=== PATIENT | male | born 1960 | race Caucasian/White ===

== ENCOUNTER 2025-08-21 12:07 | Day surgery (SDC) | payer OTHER ==
[~2025-08-21] VITALS: Ht 182.9 cm; Wt 75.4 kg
[2025-08-21] VITALS (18 sets, daily range): BP systolic 91–135; BP diastolic 56–115
--- NOTE | 2025-08-21 13:17 | NUR ---
Ambulatory in Day Surgery Pre-Op teaching done. Pt verbalizes understanding. Patient confirms NPO status and agrees with scheduled surgery. History, Chart, Medications and Allergies reviewed before start of procedure.Patient States Post-Procedure ride home has been arranged.
--- NOTE | 2025-08-21 13:54 | NUR ---
08/21/25 Sarah Walker CONFIRMED AND REVIEWED H&P, MEDCICATIONS, ALLERGIES, MEDICAL HISTORY, RESPIRATORY HISTORY, VITAL SIGNS, 3-LEAD EKG, CONSENTS, AND PHYSICIAN ORDERS. PATIENT CONFIRMS NPO STATUS AND AGREES WITH SCHEDULED PROCEDURE. MONITOR INTACT WITH CONTINUOUS PULSE OXIMETRY, CAPNOGRAPHY, 3-LEAD EKG, INTERMITTENT BP. SUPPLEMENTAL O2 TO BE TITRATED THROUGHOUT PROCEDURE TO MAINTAIN O2 SATURATION ABOVE 90%. PATIENT DETERMINED TO BE ASA APPROPRIATE FOR PROPOFOL SEDATION PRIOR TO START OF PROCEDURE BY DR. Cantu
--- NOTE | 2025-08-21 14:50 | NUR ---
Block Timeout performed with @ 1724 Start: 5279 End: 1438 Pt placed on O2 for procedure, VSS, pt TOW
--- NOTE | 2025-08-21 14:58 | NUR ---
[id number] Discharge instructions reviewed with patient. Patient verbalizes understanding. Copy given to patient to take home. Patient up to Ambulate independently. Gait steady. Patient States Post-Procedure ride home has been arranged. Discharged via wheelchair to private car for ride home.
== END 2025-08-21 14:40 | disposition home or self-care (01) ==
LOC: ORSCMMR 12:07 → ORD 13:45 → ORSCMMR 14:40
PROVIDERS: Family Medicine
PROC: 0DJD8ZZ Inspection of Lower Intestinal Tract, Via Natural or Artificial Opening Endoscopic (ICD-10-PCS; principal; 2025-08-21 13:45)
DX: Z12.11 Encounter for screening for malignant neoplasm of colon (principal); K57.30 Diverticulosis of large intestine without perforation or abscess without bleeding; Z86.0100 Personal history of colon polyps, unspecified
CPT/HCPCS: J2704; J7120